=== PATIENT | male | born 1955 | race Caucasian/White ===

== ENCOUNTER 2018-11-06 12:06 | Inpatient (IN) | payer BC ==
[2018-11-06] VITALS (13 sets, daily range): BP systolic 103–168
[~2018-11-06] VITALS: Ht 182.9 cm; Wt 109.4 kg
[2018-11-06] MEDS: NACL 0.9% 2,000 ML IV ONE ×2 (10:00→18:32)
--- NOTE | 2018-11-06 12:07 | NUR ---
Placed in room 01 . Placed on potline monitor, blood pressure machine and pulse oximeter. To gown for exam. Side rails up.
--- NOTE | 2018-11-06 12:07 | NUR ---
1207: Successful intubation after [address] Rush 1207: 1st epi in. 1208: 1 amp bicarb given 1210: pulses palpable, CPR stopped.
--- NOTE | 2018-11-06 12:07 | NUR ---
Patient arrived via ALS ambulance, patient BVM, patient patel in color, cold, and no palpable pulses. MD Rush at bedside for intubation. CPR began by attending fire fighters. RT called to bedside, and crash cart opened.
--- NOTE | 2018-11-06 12:07 | NUR ---
Patient placed on ventilator by RT initial settings: AC 22/ TV500/ PEEP 0/ 100%FiO2. 28 at lip, XR at bedside for placement verification.
--- NOTE | 2018-11-06 12:10 | NUR ---
Per Dr. Rush, ETT at 26cm at lip.
[2018-11-06] MEDS ORDERED: LEVOFLOXACIN 500 MG/D5W 100 ML IV ONE (12:15)
[2018-11-06] MEDS ORDERED: ALBUTEROL SULFATE 0.083% 2.5 MG/3 ML VIAL.NEB INH ONE (12:15)
--- NOTE | 2018-11-06 12:25 | NUR ---
# 16 FR Coyle catheter with use of sterile technique. Immediate return of 20 cc dark yellow clear urine noted. Bedside drainage bag placed below level of bladder. Urine sample collected and sent to lab. Pt tolerated procedure well. Patient unable to toilet self.
[2018-11-06 12:56] LABS: BILIRUBIN,URINE NEGATIVE (NEGATIVE); BLOOD, URINE 1+ (NEGATIVE); CLARITY/URINE CLEAR (CLEAR); COLOR,URINE YELLOW (YELLOW); GLUCOSE,URINE NEGATIVE (NEGATIVE); KETONES,URINE NEGATIVE (NEGATIVE); LEUKOCYTE ESTERASE ,URINE TRACE (NEGATIVE); NITRITE, URINE NEGATIVE (NEGATIVE); PH,URINE 6.5 (5.0-8.0); PROTEIN URINE 1+ (NEGATIVE)
[2018-11-06 12:56] LABS: RED BLOOD CELL COUNT(AUTO) 3.59 MIL/uL (4.2-6.2); WHITE BLOOD COUNT (AUTO) 6.4 K/uL (4.8-10.8)
[2018-11-06 12:57] LABS: HEMATOCRIT 33.6 % (36-54); HEMOGLOBIN 10.6 g/dL (14.0-18.0); LYMPHOCYTES # (AUTO) 1.1 K/uL (1.0-5.5); LYMPHOCYTES % (AUTO) 17.2 % (20.5-51.5); MEAN CORPUSCULAR HEMOGLOBIN 30 pg (27-31); MEAN CORPUSCULAR HGB CONC 32 % (32-36); MEAN CORPUSCULAR VOLUME 93 fL (79.0-98.0); MONOCYTES % (AUTO) 7.1 % (1.7-9.3); NEUTROPHILS # (AUTO) 4.8 K/uL (1.8-7.7); NEUTROPHILS % (AUTO) 74.7 % (40.0-70.0); PLATELET COUNT (AUTO) 216 K/uL (130-430); RED CELL DISTRIBUTION WIDTH 14.5 % (9.0-15.0)
[2018-11-06 12:58] LABS: EOSINOPHILS # (AUTO) 0.1 K/uL (0.0-0.4); MONOCYTES # (AUTO) 0.5 K/uL (0.0-1.0)
--- NOTE | 2018-11-06 13:00 | NUR ---
Blood pressure at 55/36, levophed started at rate of 10mcg/min per Dr. Rush. Bedside monitor changed to q5min BP monitoring.
[2018-11-06] MEDS ORDERED: NOREPINEPHRINE 4 MG/4 ML VIAL IV ONE ×3 (13:02→22:36)
[2018-11-06 13:04] LABS: CALCIUM 8.5 mg/dL (8.4-11.0); CREATININE 0.77 mg/dL (0.55-1.30); POTASSIUM 3.4 mmol/L (3.5-5.1)
--- NOTE | 2018-11-06 13:08 | NUR ---
Dr. Lamar at bedside for evaluation.
[2018-11-06 13:09] LABS: ALBUMIN 2.3 g/dL (3.4-4.8); TOTAL BILIRUBIN 0.3 mg/dL (0.0-1.0)
[2018-11-06 13:17] LABS: INR 1.1 (0.80-1.20); PROTHROMBIN TIME 11.2 SECS (9.5-12.5)
[2018-11-06 13:27] LABS: BACTERIA,URINE MODERATE /HPF (None Seen)
[2018-11-06 13:28] LABS: MUCUS,URINE 1+ /LPF (None Seen); URINE AMORPHOUS URATE 1+ /HPF (None Seen); YEAST,URINE None Seen /HPF (None Seen)
[2018-11-06] MEDS ORDERED: ALBUTEROL SULFATE 0.083% 2.5 MG/3 ML VIAL.NEB INH PRN (13:30)
[2018-11-06] MEDS ORDERED: IPRATROPIUM BROM 0.5 MG/2.5 ML VIAL.NEB (ATROVENT) INH PRN (13:30)
--- NOTE | 2018-11-06 13:52 | NUR ---
Levophed titrated up to 12mcg/min to keep MAP >65. Current blood pressure of 80/46 (59). Will continue to monitor BP q5min.
[2018-11-06] MEDS ORDERED: MULT-1089 PO (13:54)
[2018-11-06] MEDS ORDERED: PROC5TAB12 PO (13:54)
[2018-11-06] MEDS ORDERED: FERR-69 PO (13:54)
[2018-11-06] MEDS ORDERED: DOCU-144 PO (13:54)
[2018-11-06] MEDS ORDERED: TRAM-350 PO (13:54)
[2018-11-06] MEDS ORDERED: SIMV10TA2 PO (13:54)
[2018-11-06] MEDS ORDERED: SENN8.6T19 PO (13:54)
[2018-11-06] MEDS ORDERED: CYAN100010 PO (13:54)
[2018-11-06] MEDS ORDERED: MOM PO (13:54)
[2018-11-06] MEDS ORDERED: LISI10TA5 PO (13:54)
[2018-11-06] MEDS ORDERED: FAMO40TA71 PO (13:54)
[2018-11-06] MEDS ORDERED: BISA-79 PR (13:54)
[2018-11-06] MEDS ORDERED: LACT1CAP89 PO (13:54)
[2018-11-06] MEDS ORDERED: GLUC1VIA4 IM (13:54)
[2018-11-06] MEDS ORDERED: ASCO500T20 PO (13:54)
[2018-11-06] MEDS ORDERED: GUAI-723 PO (13:54)
[2018-11-06] MEDS ORDERED: AMI200 PO (13:54)
[2018-11-06] MEDS ORDERED: LACT10SO6 PO (13:54)
[2018-11-06] MEDS ORDERED: AMLO5TAB4 PO (13:54)
[2018-11-06] MEDS ORDERED: SSREG SUBCUT (13:54)
[2018-11-06] MEDS ORDERED: FLEETMO RC (13:54)
[2018-11-06] MEDS ORDERED: MVI,5VIA6 IV (13:54)
[2018-11-06] MEDS ORDERED: GLUXR500 PO (13:54)
[2018-11-06] MEDS ORDERED: ACET325T53 PO (13:54)
--- NOTE | 2018-11-06 14:14 | NUR ---
Patient will be admitted to care of Dr. Lamar. Admitted to ICU unit. Will go to room ICU5. Belongings list completed. Summary report printed. Report will be given at bedside.
[2018-11-06] MEDS ORDERED: ALBUTEROL SULFATE 0.083% 2.5 MG/3 ML VIAL.NEB INH SCH (15:00)
[2018-11-06] MEDS ORDERED: IPRATROPIUM BROM 0.5 MG/2.5 ML VIAL.NEB (ATROVENT) INH SCH (15:00)
--- NOTE | 2018-11-06 15:00 | NUR ---
Opening Note Patient transferred from ER via gurney. Patient received alert, awake, and cooperative. Patient on vent with settings of AC 22, TV 500, and FiO2 100% breathing evenly and unlabored. Patient connected to phototypesetting equipment monitor with A-fib. Patient has a EFE PICC with double lumen infusing NS @ 100 ml/hr and levophed @ 12 mcg/min. Patient has a beatty catheter in place draining tania colored urine. Skin non-intact. Dressing in place on sacral area. Will monitor VS closely. Safety precautions in place.
[2018-11-06] MEDS ORDERED: HYDROCORTISONE SOD SUCC 100 MG/2 ML VIAL IVP ONE (16:30)
[2018-11-06] MEDS ORDERED: EPINEPHrine JECT 1 MG/10 ML SYR IVP ONE (16:33)
[2018-11-06] MEDS ORDERED: SODIUM BICARBONATE 8.4% JECT 50 MEQ/50 ML SYRINGE IVP ONE (16:33)
--- NOTE | 2018-11-06 17:05 | NUR ---
RT Note: 1702 Decreased rate to 14, PEEP adjusted to 5, and FiO2 decreased to 50% keeping SpO2 > 92% per Dr. Nguyễn and per ABG results. LUIS Saleh made aware. Will continue to titrate FiO2 and monitor pt. Addendum: 11/06/18 at 1709 by Jennifer Blue RT Amended: Links added.
[2018-11-06] MEDS ORDERED: LORazepam 2 MG/ML VIAL IVP PRN (18:45)
[2018-11-06] MEDS ORDERED: MORPHINE 4 MG/ML INJ. SYRINGE IVP PRN (18:45)
--- NOTE | 2018-11-06 19:25 | NUR ---
Endorsement Patient endorsed to professor in family studies RN using SBAR format. Patient VSS @ this time. Patient in no signs of acute distress.
[2018-11-06] MEDS: NACL 0.9% 1,000 ML IV SCH (19:27)
--- NOTE | 2018-11-06 19:45 | NUR ---
PM Assessment Pt in bed asleep. Pt is AAO. A-fib shown on monitor. ETT in place. Vent settings: AC 14, FIO2 100%, TV 500, PEEP 5. No s/s of distress noted. Pt has EFE PICC Line in place. Site is C/D/I. Levophed running @15mcg/min. NS running @ 100ml/hr. Pt has a Coyle catheter in place draining urine to gravity. Bed locked in lowest position, call light in reach, and safety precautions in place. Will continue to monitor. Addendum: 11/06/18 at 2338 by Zheng More RN FIO2 of 50%.
[2018-11-06] MEDS: ALBUTEROL SULFATE 0.083% 2.5 MG/3 ML VIAL.NEB INH SCH (19:49)
[2018-11-06] MEDS: IPRATROPIUM BROM 0.5 MG/2.5 ML VIAL.NEB (ATROVENT) INH SCH (19:50)
[2018-11-06] MEDS ORDERED: IOHEXOL 350 mgI/mL, 150 ML INFUS..BTL IV ONE (19:53)
--- NOTE | 2018-11-06 20:00 | NUR ---
CT Pt being taken down to CT scan accompanied by RN and RT. VSS. Will continue to monitor.
--- NOTE | 2018-11-06 20:35 | NUR ---
Pt back from CT scan. Tolerated well, VSS. Will continue to monitor.
[2018-11-06] MEDS: HYDROCORTISONE SOD SUCC 100 MG/2 ML VIAL IVP SCH (22:39)
[2018-11-06] MEDS: NOREPINEPHRINE BITARTRATE 4 MG in NS 246 ML IV PRN (22:41)
[2018-11-07] VITALS (36 sets, daily range): BP systolic 91–145
[2018-11-07] MEDS: INSULIN REGULAR, HUMAN 100 UNITS/ML, 10 ML VIAL (novoLIN R) SUBCUT PRN ×3 (00:23→17:17)
[2018-11-07] MEDS: ALBUTEROL SULFATE 0.083% 2.5 MG/3 ML VIAL.NEB INH SCH ×4 (01:13→20:14)
[2018-11-07] MEDS: IPRATROPIUM BROM 0.5 MG/2.5 ML VIAL.NEB (ATROVENT) INH SCH ×4 (01:14→20:14)
--- NOTE | 2018-11-07 01:45 | NUR ---
NGT NGT placed orally. Auscultated and flushed for placement. X-ray to be done in the AM. Pt tolerated well.
--- NOTE | 2018-11-07 02:05 | NUR ---
CHG CHG bath given and linens changed. Pt tolerated well. Will continue to monitor.
[2018-11-07] MEDS ORDERED: NOREPINEPHRINE 4 MG/4 ML VIAL IV ONE (04:38)
[2018-11-07] MEDS: NACL 0.9% 1,000 ML IV SCH ×3 (04:41→14:19)
[2018-11-07] MEDS: NOREPINEPHRINE BITARTRATE 4 MG in NS 246 ML IV PRN ×2 (04:43→11:33)
--- NOTE | 2018-11-07 04:50 | NUR ---
RN Round Pt asleep in bed. No s/s of distress noted. VSS. Pt Temp back down after ice packs place on Pt. Will continue to monitor.
[2018-11-07] MEDS: HYDROCORTISONE SOD SUCC 100 MG/2 ML VIAL IVP SCH ×3 (06:04→21:20)
--- NOTE | 2018-11-07 06:23 | NUR ---
Closing Note Pt in bed asleep. SR shown on monitor. Vent settings: AC 14, FIO2@ 50%, TV 500, PEEP 5. Pt has EFE PICC line in place. Site remains C/D/I. Levophed running at 5mcg/min. Pt has NS running @ 100ml/hr. Coyle catheter in place training urine to gravity. Bed locked in lowest position, safety precautions in place, and call light in reach. Will endorse to oncoming nurse.
[2018-11-07 06:32] LABS: CALCIUM 8.3 mg/dL (8.4-11.0); CREATININE 0.65 mg/dL (0.55-1.30); POTASSIUM 3.5 mmol/L (3.5-5.1)
[2018-11-07 06:44] LABS: ALBUMIN 2.2 g/dL (3.4-4.8); TOTAL BILIRUBIN 0.4 mg/dL (0.0-1.0)
[2018-11-07 07:15] LABS: HEMOGLOBIN 10.2 g/dL (14.0-18.0); RED BLOOD CELL COUNT(AUTO) 3.42 MIL/uL (4.2-6.2); WHITE BLOOD COUNT (AUTO) 6.1 K/uL (4.8-10.8)
[2018-11-07 07:16] LABS: HEMATOCRIT 31.2 % (36-54); MEAN CORPUSCULAR HEMOGLOBIN 30 pg (27-31); MEAN CORPUSCULAR HGB CONC 33 % (32-36); MEAN CORPUSCULAR VOLUME 91 fL (79.0-98.0); PLATELET COUNT (AUTO) 221 K/uL (130-430); RED CELL DISTRIBUTION WIDTH 15.1 % (9.0-15.0)
[2018-11-07 07:17] LABS: LYMPHOCYTES # (AUTO) 0.5 K/uL (1.0-5.5); LYMPHOCYTES % (AUTO) 8.3 % (20.5-51.5); MONOCYTES # (AUTO) 0.3 K/uL (0.0-1.0); MONOCYTES % (AUTO) 5.5 % (1.7-9.3); NEUTROPHILS # (AUTO) 5.3 K/uL (1.8-7.7); NEUTROPHILS % (AUTO) 86.2 % (40.0-70.0)
--- NOTE | 2018-11-07 07:25 | NUR ---
Endorsement Report given to Oncoming nurse at bedside via SBAR approach.
--- NOTE | 2018-11-07 07:30 | NUR ---
AM NOTES IN BED, PT RESPONSE TO VERBAL STIMULI. TOLERATING VENT SETTINGS, TV-500, AC-14, PEEP-5 AND FI02-50%. FERRELL DRAINING YELLOW URINE. HAS EFE PICC LINE RUNNING NS AT 100CC/HR. AFEBRILE. SAFETY PRECAUTION OBSERVED. WILL CONTINUE TO MONITOR.
--- NOTE | 2018-11-07 07:35 | NUR ---
RT Note: 0735 Decreased FiO2 to 40% keeping SpO2 above 92%. Will continue to monitor pt. RN made aware. Addendum: 11/07/18 at 0834 by Jennifer Blue RT Amended: Links added.
--- NOTE | 2018-11-07 07:56 | NUR ---
LEVOPHED TITRATE TO 3MCG/MIN AT THIS TIME. WILL MONITOR.
[2018-11-07] MEDS: AMIODARONE HCL 200 MG TABLET PO SCH (08:44)
[2018-11-07] MEDS: PANTOPRAZOLE SODIUM 40 MG/VIAL (PROTONIX) IVP SCH (08:44)
[2018-11-07] MEDS: ASPIRIN 81 MG TAB.CHEW PO SCH (08:44)
--- NOTE | 2018-11-07 08:46 | NUR ---
Consult Cardio. Dr. Chinchilla called (Dr. Agarwal handyperson) Spoke to rafael Dialed [phone] Ordered by Nery Mullins
--- NOTE | 2018-11-07 08:57 | NUR ---
called- Spoke to Dr. Lo covering for Dr. nunez. Per he knows the patient from previous hospital when they did angiogram 2 weeks ago. Per Md he will come and see patient.
--- NOTE | 2018-11-07 08:59 | NUR ---
notes- Pt awake, turned and repositioned, sunctioning and mouth care done.
[2018-11-07] MEDS: LEVOFLOXACIN 500 MG/D5W 100 ML IV SCH (09:11)
--- NOTE | 2018-11-07 09:34 | NUR ---
Nutrition Update Eneraj Scale 13noted. Pt admitted for respiratory failure. Diet: N/A BMI: 30.8 kg/m2 RD to follow per nutrition care standards.
--- NOTE | 2018-11-07 13:04 | NUR ---
Dietitian Recommendations * Consider EN support via OGT if/when medically appropriate (Diabetisource TF formula) LP, RD Please refer to Nutrition Assessment for details.
[2018-11-07 14:59] LABS: BARBITURATE, URINE NEGATIVE (NEG <=200); BENZODIAZEPINE, URINE NEGATIVE (NEG <=150); CANNABINOID, URINE NEGATIVE (NEG <=50); COCAINE, URINE NEGATIVE (NEG <=150); METHAMPHETAMINES SCREEN,URINE NEGATIVE (NEG <=500); OPIATE, URINE NEGATIVE (NEG <=100); PHENCYCLIDINE SCREEN,URINE NEGATIVE (NEG <=25); UR TRICYCLIC ANTIDEPRESSANTS NEGATIVE (NEG <=300); URINE AMPHETAMINE NEGATIVE (NEG <=500); URINE METHADONE NEGATIVE (NEG <=200); URINE OXYCODONE SCREEN NEGATIVE (NEG <=100); URINE PROPOXYPHENE SCREEN NEGATIVE (NEG <=300)
--- NOTE | 2018-11-07 15:00 | NUR ---
notes- awake, family at bedside. Dr. Nguyễn seen patient and spoke to family at bedside.
--- NOTE | 2018-11-07 15:25 | NUR ---
RT Note: 1523 Vent settings changed to SIMV 8, PS 10, PEEP 5, and 35% FiO2 per Dr. Nguyễn. Pt understands and is cooperating well. Pt is tolerating change well. Will continue to monitor pt. RN aware of changes. Addendum: 11/07/18 at 1618 by Jennifer Blue RT Amended: Links added.
[2018-11-07] MEDS ORDERED: ENOXAPARIN SODIUM 40 MG/0.4 ML SYRINGE SUBCUT ONE (15:30)
--- NOTE | 2018-11-07 16:39 | NUR ---
notes- had soft bowel movement, cleaned and repositioned new dressing applied in the sacrum for protection. Tolerating vent settings at this time. No acute distress noted. family at bedside. will continue to monitor.
--- NOTE | 2018-11-07 19:45 | NUR ---
PM Assessment Pt in bed. AAO. SR shown on monitor. Vent settings: SIMV 8,TV 500, PEEP 5, PS 10, FIO2 35%. No s/s of distress noted. Pt has EFE PICC line in place. Site C/D/I. No s/s of infiltration noted. NS running @ 100 ml/hr. Levophed running @ 3mcg/min. Pt has OGT in place, clamped. Coyle catheter in place draining urine to gravity. Bed locked in lowest position, safety precautions in place, and call light in reach. Will continue to monitor.
[2018-11-08] VITALS (32 sets, daily range): BP systolic 91–149
--- NOTE | 2018-11-08 00:20 | NUR ---
CHG CHG bath given and linens changed. Pt tolerated well. Will continue to monitor.
[2018-11-08] MEDS: NACL 0.9% 1,000 ML IV SCH ×2 (00:58→11:02)
--- NOTE | 2018-11-08 02:05 | NUR ---
RN Round Pt in bed asleep. No s/s of distress noted. Will continue to monitor.
[2018-11-08] MEDS: IPRATROPIUM BROM 0.5 MG/2.5 ML VIAL.NEB (ATROVENT) INH SCH ×4 (02:08→19:41)
[2018-11-08] MEDS: ALBUTEROL SULFATE 0.083% 2.5 MG/3 ML VIAL.NEB INH SCH ×4 (02:08→19:41)
--- NOTE | 2018-11-08 04:40 | NUR ---
RN Round Pt in bed asleep. No s/s of distress noted. VSS. Will continue to monitor.
[2018-11-08] MEDS: HYDROCORTISONE SOD SUCC 100 MG/2 ML VIAL IVP SCH ×2 (05:33→20:46)
--- NOTE | 2018-11-08 06:40 | NUR ---
Closing Note Pt in bed asleep. AAO. SR shown on the monitor. Vent settings: SIMV 8, TV 500, FIO2 35%, PEEP 5, PS 10. No s/s of distress noted. EFE PICC Line remains C/D/I. No s/s of infiltration noted. Coyle catheter in place draining urine to gravity. Pt has OGT in place, Clamped. No s/o of pain at this time. Bed locked in lowest position, safety precautions in place, and call light in reach. Will endorse to oncoming RN.
[2018-11-08 07:21] LABS: CALCIUM 8.1 mg/dL (8.4-11.0); CREATININE 0.58 mg/dL (0.55-1.30)
--- NOTE | 2018-11-08 07:25 | NUR ---
Endorsement Report given to oncoming RN at bedside via SBAR approach.
--- NOTE | 2018-11-08 07:30 | NUR ---
Opening Note Patient awake and alert in bed. Patient on athletic monitor with NSR. Patient breathing evenly and unlabored and is on mechanical ventilator with settings of SIMV 8, tidal volume 500, FiO2 35%, PEEP 5, and PS 10. Patient has an OGT patent, flushing well, and clamped. Patient has a beatty catheter in place draining yellow urine. Safety precautions in place, call light in reach.
[2018-11-08 07:33] LABS: TOTAL BILIRUBIN 0.4 mg/dL (0.0-1.0)
[2018-11-08 07:53] LABS: HEMATOCRIT 26.6 % (36-54); HEMOGLOBIN 8.7 g/dL (14.0-18.0); MEAN CORPUSCULAR HEMOGLOBIN 30 pg (27-31); MEAN CORPUSCULAR HGB CONC 33 % (32-36); MEAN CORPUSCULAR VOLUME 91 fL (79.0-98.0); RED BLOOD CELL COUNT(AUTO) 2.93 MIL/uL (4.2-6.2); WHITE BLOOD COUNT (AUTO) 3.9 K/uL (4.8-10.8)
[2018-11-08 07:54] LABS: BASOPHILS % (AUTO) 0.1 % (0.0-2.0); LYMPHOCYTES # (AUTO) 0.6 K/uL (1.0-5.5); LYMPHOCYTES % (AUTO) 15.5 % (20.5-51.5); MONOCYTES # (AUTO) 0.3 K/uL (0.0-1.0); MONOCYTES % (AUTO) 8.1 % (1.7-9.3); NEUTROPHILS % (AUTO) 76.3 % (40.0-70.0); PLATELET COUNT (AUTO) 152 K/uL (130-430)
[2018-11-08] MEDS: PANTOPRAZOLE SODIUM 40 MG/VIAL (PROTONIX) IVP SCH (08:55)
[2018-11-08] MEDS: ASPIRIN 81 MG TAB.CHEW PO SCH (08:56)
[2018-11-08] MEDS: AMIODARONE HCL 200 MG TABLET PO SCH (08:56)
[2018-11-08] MEDS: LEVOFLOXACIN 500 MG/D5W 100 ML IV SCH (08:56)
[2018-11-08] MEDS: ENOXAPARIN SODIUM 40 MG/0.4 ML SYRINGE SUBCUT SCH (08:57)
[2018-11-08] MEDS ORDERED: KCL 40 mEq in 100 mL (PREMIX) 100 ML IV ONE (09:00)
[2018-11-08 09:12] LABS: TOTAL IRON BIND. CAPACITY 181 ug/dL (250-450)
--- NOTE | 2018-11-08 12:00 | NUR ---
RN Rounds Patient awake and alert. No signs of acute distress @ this time. VSS.
[2018-11-08] MEDS ORDERED: FUROSEMIDE 20 MG/2 ML VIAL IVP ONE (13:15)
[2018-11-08] MEDS ORDERED: POTASSIUM CHLORIDE 20 MEQ/PKT PACKET PO ONE (13:15)
--- NOTE | 2018-11-08 13:40 | NUR ---
MD Rounds Dr. Nguyễn @ bedside. New orders received and will be carried out.
--- NOTE | 2018-11-08 13:50 | NUR ---
RT Note: 1348 Pt found on CPAP mode with PS 10 and PEEP 5. Will draw ABG an hour from the time of vent change order. Will continue to monitor pt. Pt is tolerating well. No distress noted. Addendum: 11/08/18 at 1455 by Jennifer Blue RT Amended: Links added.
[2018-11-08] MEDS: POTASSIUM CHLORIDE 10 MEQ in 0.45% NACL 1,000 ML IV SCH (15:34)
--- NOTE | 2018-11-08 15:37 | NUR ---
RN update Patient extubated @ this time. Patient on 2L O2 via nasal cannula. Patient tolerated procedure well.
--- NOTE | 2018-11-08 15:40 | NUR ---
RT Note: 1537 Patient extubated and placed on 2LPM nasal cannula. Pt tolerated procedure. V/S are within normal limits. Will continue to monitor pt. RN at bedside. Addendum: 11/08/18 at 1632 by Jennifer Blue RT Amended: Links added.
--- NOTE | 2018-11-08 16:00 | NUR ---
RN Rounds Patient awake and alert. No signs of acute distress @ this time. No complaints of pain. Safety precautions in place.
--- NOTE | 2018-11-08 16:10 | NUR ---
PICC line dressing change PICC line dressing changed. Patient tolerated procedure well.
--- NOTE | 2018-11-08 19:30 | NUR ---
Endorsement Patient endorsed to mica machine operator nurse. VSS. No signs of acute distress noted.
--- NOTE | 2018-11-08 20:00 | NUR ---
pt.assessed.pt.presents hx;s/p code blue.v/s assessed;w/in normal limits.pt.capable to conveyed needs;verbalize;voice low tone;whisper but appropriate in response.pt.presents picc line;rt.bicept;intact patent;iv fluids infusing.i was apprised per day shf;nsg, picc line dsg was changed;11/08/18.pt.presents no c/o pain,nausea.pt.assessed for cleanliness.pt.repositioned.o2- sat%w/in normal limits;respiratory status stable:breathing pattern/character unlabored.call light/telephone placed w/in the reach of the pt.
--- NOTE | 2018-11-08 21:00 | NUR ---
2100p medication adminitered;solumedrol;via pic herron.i have provided the indication for the medication to the pt.no c/o pain,nausea.no requests@this hour.call light/telephone w/in the reach of the pt.
--- NOTE | 2018-11-08 22:00 | NUR ---
pt.assessed.v/s assessed:w/in normal limits.no c/o pain,nausea.i have assessed the picc line;intact;patent;iv fluids infusing. i have assessed the beatty catheter;intact;patent;urine content presents.pt,.assessed for cleanliness.pt.repositioned.02-sat% w/in normal limits.call light/telephone w.in reach of the pt.
[2018-11-09] VITALS (21 sets, daily range): BP systolic 121–160
--- NOTE | 2018-11-09 | NUR ---
pt.assessed.v/s assessed;values w/in normal limits.no c/o pain.i have assessed the blood glucose;value;130mg/dl. i have assessed the pic herron;intact;patent;iv fluids infusing.pt.assessed for cleanliness.pt.repositioned.general status stable.respiratory status stable.call light/telephone w/in the reach of the pt. Addendum: 11/09/18 at 0300 by Levi Gardner RN bi-pap apparatus applied t pt.settings assessed;i/e;29/12,r/r;,fi-25:=28%. Addendum: 11/09/18 at 0439 by Levi Gardner RN bi-pap apparatus applied to the pt.settings;i/e;29/12,r/r;16,fio-2%=28%
[2018-11-09] MEDS: ALBUTEROL SULFATE 0.083% 2.5 MG/3 ML VIAL.NEB INH SCH ×4 (00:59→19:49)
[2018-11-09] MEDS: IPRATROPIUM BROM 0.5 MG/2.5 ML VIAL.NEB (ATROVENT) INH SCH ×4 (00:59→19:49)
--- NOTE | 2018-11-09 02:00 | NUR ---
pt.assessed.i have assessed the picc lne;intact;patent;iv fluids infusing.i have assessed the beatty catheter;intact;patent;urine content present.pt.assessed for cleanliness.pt,.repositioned.general status stable.respiratory status stable;bi-pap assessed pt.tolerating the settings.call light/telephone w/in the reach of the pt.
--- NOTE | 2018-11-09 04:00 | NUR ---
pt.assessed.v/s assessed;values w/in normal limits.i have assessed the picc line;intact.patent;iv fluids infusing.i have assessed the beatty catheter;intact;patent;urine content present.02-sat%w/in normal limits.i have assessed the bi-pap;pt.tolerating the settings. pt.assessed for cleanliness.pt.repositioned.general status stable.respiratory status stable.call light/telephone placed w/in the reach of the pt.
--- NOTE | 2018-11-09 05:00 | NUR ---
i have weighed the pt.2/t hx;chf.
[2018-11-09] MEDS: POTASSIUM CHLORIDE 10 MEQ in 0.45% NACL 1,000 ML IV SCH ×2 (05:11→17:25)
--- NOTE | 2018-11-09 06:55 | NUR ---
pt.assessed.pt.assessed for cleanliness.i have assessed the picc line;intact;patent.iv fluids infusing.i have assessed the blood glucose;127mg/dl.i have assessed the bi-pap;pt.tolerating the settings.pt.repositioned.general status stable.respiratory status stable.call light./telephone pled w/in the reach of the pt.
--- NOTE | 2018-11-09 07:15 | NUR ---
OPENING NOTE: Received SBAR report and plan of care from night RN
[2018-11-09 07:24] LABS: ALBUMIN 2.2 g/dL (3.4-4.8); CALCIUM 8.3 mg/dL (8.4-11.0); CREATININE 0.48 mg/dL (0.55-1.30); POTASSIUM 3.3 mmol/L (3.5-5.1); TOTAL BILIRUBIN 0.5 mg/dL (0.0-1.0)
[2018-11-09] MEDS ORDERED: KCL 40 mEq in 100 mL (PREMIX) 100 ML IV ONE (07:45)
[2018-11-09] MEDS: LEVOFLOXACIN 500 MG/D5W 100 ML IV SCH (08:25)
[2018-11-09] MEDS: PANTOPRAZOLE SODIUM 40 MG/VIAL (PROTONIX) IVP SCH (08:25)
[2018-11-09] MEDS: AMIODARONE HCL 200 MG TABLET PO SCH (08:26)
[2018-11-09] MEDS: ASPIRIN 81 MG TAB.CHEW PO SCH (08:26)
[2018-11-09] MEDS: HYDROCORTISONE SOD SUCC 100 MG/2 ML VIAL IVP SCH ×2 (08:26→21:11)
[2018-11-09] MEDS: ENOXAPARIN SODIUM 40 MG/0.4 ML SYRINGE SUBCUT SCH (08:27)
[2018-11-09 08:43] LABS: HEMATOCRIT 28.4 % (36-54); HEMOGLOBIN 9.3 g/dL (14.0-18.0); RED BLOOD CELL COUNT(AUTO) 3.11 MIL/uL (4.2-6.2); WHITE BLOOD COUNT (AUTO) 3.3 K/uL (4.8-10.8)
[2018-11-09 08:44] LABS: BASOPHILS % (AUTO) 0.1 % (0.0-2.0); LYMPHOCYTES # (AUTO) 0.7 K/uL (1.0-5.5); LYMPHOCYTES % (AUTO) 20.5 % (20.5-51.5); MEAN CORPUSCULAR HEMOGLOBIN 30 pg (27-31); MEAN CORPUSCULAR HGB CONC 33 % (32-36); MEAN CORPUSCULAR VOLUME 91 fL (79.0-98.0); MONOCYTES # (AUTO) 0.3 K/uL (0.0-1.0); MONOCYTES % (AUTO) 8.1 % (1.7-9.3); NEUTROPHILS # (AUTO) 2.3 K/uL (1.8-7.7); PLATELET COUNT (AUTO) 141 K/uL (130-430); RED CELL DISTRIBUTION WIDTH 15.6 % (9.0-15.0)
--- NOTE | 2018-11-09 10:18 | NUR ---
Cheryle Lombardo. Called eber left a voice message Dialed [phone]
[2018-11-09 13:49] LABS: NEUTROPHILS % (AUTO) 71.3 % (40.0-70.0)
--- NOTE | 2018-11-09 15:00 | NUR ---
CHG: Gave CHG bath, changed gown and linens, patient tolerated well with minimal discomfort.
--- NOTE | 2018-11-09 15:30 | NUR ---
WOUND CARE: Changed dressings and provided wound care per wound care guidelines, patient tolerated well with minimal discomfort.
--- NOTE | 2018-11-09 16:30 | NUR ---
TRANSFER TO [facility]: Transferred patient to [facility] on her ICU bed using continuous portable monitoring, placed in location 114A, patient tolerated well with minimal discomfort, gave bedside SBAR report and endorsed plan of care to [facility] RN.
--- NOTE | 2018-11-09 16:35 | NUR ---
S.T. SWALLOW EVAL COMPLETED. PT PRESENTS W/ ML OROPHARYNGEAL DYSPHAGIA W/ PROLONGED MASTICATION AND THROAT CLEARING ON CONTINUOUS SIPS OF THIN LIQUIDS. OTHERWISE, NO S/S OF ASPIRATION. REC: [facility] SOFT CHOPPED DIET. THIN LIQUIDS OK. ONE SIP AT A TIME. PT VERBALIZED UNDERSTANDING OF RESULTS AND REC. NURSES GLENROY AND CALDERON NOTIFIED. G8996 CJ G8997 CJ G8998 NOMS LEVEL 5
--- NOTE | 2018-11-09 16:55 | NUR ---
INITIAL NOTE RECEIVED PT FROM ICU, NO S/S OF DISTRESS OR SOB NOTED, PT IN STABLE CONDITION, PT AAOX4, VERBAL. PT HAS A PICC LINE ON RIGHT UPPER, DRESSING CLEAN AND DRY, NON OCCLUDED, BOTH PORTS FLUSH AND HAVE BLOOD RETURN. PT ON OXYGEN 2 LITERS VIA NASAL CANNULA SATURATION OF 95%. PT EDUCATED TO LET NURSE KNOW WHEN HE FIRST VOIDS, PT VERBALIZED UNDERSTANDING, BLADDER NON DISTENDED, NO BLEEDING NOTED. ELEVATED LEFT UPPER ARM DUE TO SWELLING. BED AT LOWEST POSITION, CALL LIGHT WITHIN REACH, WILL CONTINUE TO MONITOR PT FOR ANY CHANGES, FALL AND SAFETY PRECAUTIONS IN PLACE.
[2018-11-09] MEDS: INSULIN REGULAR, HUMAN 100 UNITS/ML, 10 ML VIAL (novoLIN R) SUBCUT PRN (17:21)
--- NOTE | 2018-11-09 18:29 | NUR ---
CLOSING NOTE PT IN BED, NO S/S OF DISTRESS OR SOB NOTED, PT IN STABLE CONDITION, PT AAOX4, VERBAL. PT HAS A PICC LINE ON RIGHT UPPER, DRESSING CLEAN AND DRY, NON OCCLUDED, BOTH PORTS FLUSH AND HAVE BLOOD RETURN. PT ON OXYGEN 2 LITERS VIA NASAL CANNULA SATURATION OF 95%. PT STILL HAS NOT VOIDED, ELEVATED LEFT UPPER ARM DUE TO SWELLING. BED AT LOWEST POSITION, CALL LIGHT WITHIN REACH, WILL ENDORSE CARE OF PT TO INCOMING NURSE, FALL AND SAFETY PRECAUTIONS IN PLACE.
--- NOTE | 2018-11-09 19:15 | NUR ---
OPENING NOTES Bedside report received from dayshift nurse. Patient received in bed, AOx4, toe nails getting trimmed by his [id number]. No s/s of acute distress noted. Breathing even and unlabored. HOB raised, nasal canula attached, on 2L of oxygen. Skin warm and dry to touch, no s/s of hypoglycemia. IVF infusing well, PICC site shows no signs of infiltration or infection. Call light with patient, instructed to call for any assistance, patient verbalized understanding. Bed alarm on. Bed is locked and at lowest position. Will continue to monitor.
--- NOTE | 2018-11-09 21:00 | NUR ---
ROUNDS Patient in bed watching TV. No signs of discomfort noted. Chest rise and fall even bilaterally. Nasal canula attached properly, on 2L of oxygen. Call light with patient. Bed alarm on. Will continue to monitor.
--- NOTE | 2018-11-09 23:00 | NUR ---
ACCUCHECK ACCUCHECK done at this time. BS at 139, no insulin coverage needed per sliding scale. Skin warm and dry to touch. No signs of hypoglycemia noted. Will continue to monitor.
[2018-11-10 00:14] VITALS: BP_SYST 150
[2018-11-10] MEDS: ALBUTEROL SULFATE 0.083% 2.5 MG/3 ML VIAL.NEB INH SCH ×4 (00:53→20:55)
[2018-11-10] MEDS: IPRATROPIUM BROM 0.5 MG/2.5 ML VIAL.NEB (ATROVENT) INH SCH ×4 (00:53→20:55)
--- NOTE | 2018-11-10 01:00 | NUR ---
ROUNDS Patient in bed sleeping at this time. BiPAP machine attached. No s/s of acute distress noted. Call light with patient. Bed alarm on. Will continue to monitor.
--- NOTE | 2018-11-10 03:00 | NUR ---
ROUNDS Patient in bed sleeping at this time. No s/s of acute distress noted. Breathing even and unlabored. Call light with patient. Bed alarm on. Will continue to monitor.
--- NOTE | 2018-11-10 05:00 | NUR ---
ROUNDS Patient in bed sleeping at this time. No signs of discomfort noted. Chest rise and fall even bilaterally. IVF infusing well. BiPAP attached. Call light with patient. Bed alarm on. Will continue to monitor.
[2018-11-10] MEDS: INSULIN REGULAR, HUMAN 100 UNITS/ML, 10 ML VIAL (novoLIN R) SUBCUT PRN (05:17)
--- NOTE | 2018-11-10 06:59 | NUR ---
CLOSING NOTES Patient in bed sleeping at this time. No s/s of acute distress noted. Breathing even and unlabored. IVF infusing well. SCDs attached. All needs met throughout shift. Fall and safety precautions maintained throughout shift. Will continue to monitor until patient care is endorsed to oncoming dayshift nurse.
[2018-11-10 07:22] LABS: ALBUMIN 2.1 g/dL (3.4-4.8); CALCIUM 8.6 mg/dL (8.4-11.0); CREATININE 0.48 mg/dL (0.55-1.30); POTASSIUM 3.2 mmol/L (3.5-5.1); TOTAL BILIRUBIN 0.6 mg/dL (0.0-1.0)
[2018-11-10] MEDS ORDERED: POTASSIUM CHLORIDE 20 MEQ/PKT PACKET PO ONE (08:00)
--- NOTE | 2018-11-10 08:00 | NUR ---
initial notes rec patient awake, alert with ivf infusing on the r upper arm picc line. no infiltration noted. bed to the lowest position and side rails up and locked. call light within reached and knows when to call for assistance. no sob noted.
--- NOTE | 2018-11-10 08:37 | NUR ---
CONSULT ENT VOCAL CORD DYSFUNCTION DR GARCIA [phone] S/W [facility]
[2018-11-10] MEDS: PANTOPRAZOLE SODIUM 40 MG/VIAL (PROTONIX) IVP SCH (08:42)
[2018-11-10] MEDS: HYDROCORTISONE SOD SUCC 100 MG/2 ML VIAL IVP SCH (08:42)
[2018-11-10] MEDS: AMIODARONE HCL 200 MG TABLET PO SCH (08:43)
[2018-11-10] MEDS: ASPIRIN 81 MG TAB.CHEW PO SCH (08:43)
[2018-11-10] MEDS: ENOXAPARIN SODIUM 40 MG/0.4 ML SYRINGE SUBCUT SCH (08:44)
[2018-11-10 08:57] LABS: EOSINOPHILS % (AUTO) 0.2 % (0.0-4.0); HEMATOCRIT 29.7 % (36-54); HEMOGLOBIN 9.7 g/dL (14.0-18.0); MEAN CORPUSCULAR HEMOGLOBIN 30 pg (27-31); MEAN CORPUSCULAR HGB CONC 33 % (32-36); MEAN CORPUSCULAR VOLUME 91 fL (79.0-98.0); MONOCYTES % (AUTO) 6.8 % (1.7-9.3); NEUTROPHILS % (AUTO) 73.9 % (40.0-70.0); PLATELET COUNT (AUTO) 164 K/uL (130-430); RED BLOOD CELL COUNT(AUTO) 3.26 MIL/uL (4.2-6.2)
[2018-11-10 08:58] LABS: BASOPHILS % (AUTO) 0.1 % (0.0-2.0); LYMPHOCYTES # (AUTO) 0.6 K/uL (1.0-5.5); MONOCYTES # (AUTO) 0.2 K/uL (0.0-1.0); NEUTROPHILS # (AUTO) 2.2 K/uL (1.8-7.7)
[2018-11-10] MEDS: LEVOFLOXACIN 500 MG/D5W 100 ML IV SCH (09:06)
--- NOTE | 2018-11-10 09:15 | NUR ---
CONSULT GI POSSIBLE LIVER CIRRHOSIS DR WEBB [phone] S/W [facility]
--- NOTE | 2018-11-10 09:27 | NUR ---
notes seen by dr jeff valerio and with orders. will continue to monitor patient.
--- NOTE | 2018-11-10 09:46 | NUR ---
F/U ENT CONSULT MADI[facility] FROM DR GARCIA'S OFFICE CALLED BACK DR GARCIA DOES NOT ACCEPT PATIENTS INSURANCE
--- NOTE | 2018-11-10 10:00 | NUR ---
notes seen by dr fajardo.
--- NOTE | 2018-11-10 10:28 | NUR ---
CONSULT ENT VOCAL CORD DYSFUNCTION DR JUDITH PETTY [phone] S/W [facility] OFFICE
[2018-11-10] MEDS ORDERED: FUROSEMIDE 20 MG/2 ML VIAL IVP ONE (11:30)
[2018-11-10 12:32] VITALS: BP_SYST 137
--- NOTE | 2018-11-10 12:46 | NUR ---
rounds npo maintained for ultrasound of the abdomen later. no sob noted. no hypo hyperglycemic reaction noted.
--- NOTE | 2018-11-10 14:28 | NUR ---
S.T. VFSS COMPLETED. PT PRESENTS W/ PT PRESENTS W/ MOD-SEV OROPHARYNGEAL DYSPHAGIA CHARACTERIZED BY DELAYED INITIATION AND TRANSFER OF BOLUS, PROLONGED MASTICATION, DELAYED SWALLOW, MOD-SEV VALLECULAR RETENTION, ML RETENTION AT THE PYRIFORM SINUS, INFREQUENT PENETRATION WITH EJECTION, AND ASPIRATION X 1 ON HONEY THICK LIQUIDS. NO FURTHER ASPIRATION WITH USE OF SMALL SIPS AND CHIN TUCK. OTHER COMPENSATORY STRATEGIES (EG. EFFORTFUL SWALLOW, FLORES MANEUVER) DO NOT IMPROVE SWALLOW FUNCTION. REC: MECH SOFT FINELY CHOPPED DIET. THIN LIQUIDS. SWALLOW TX. NURSE ESTELITA NOTIFIED. RESULTS DISCUSSED W/ DR. HUTCHINSON. G8996 CL LEVEL 3 G8997 CK LEVEL 4 Addendum: 11/10/18 at 1447 by [facility] SWALLOW TX APPROVED BY DR. HUTCHINSON. S: PT SEEN FOR SWALLOW TX, ALERT AND COOPERATIVE. (30 MINS) O: IMPROVE SWALLOW SAFETY AND FUNCTION. A: PT INSTRUCTED ON SAFE SWALLOW STRATEGIES INCLUDING BOLUS AMOUNT REGULATION, CHIN TUCK, MULTIPLE SWALLOWS. HE VERBALIZED UNDERSTANDING. SPOKE W/ [id number] VIA PHONE. DETAILED EXPLANATION GIVEN RE: VFSS RESULTS, RECOMMENDATIONS, AND SAFE SWALLOW GUIDELINES. SHE VERBALIZED UNDERSTANDING. P: CONTINUE TX.
--- NOTE | 2018-11-10 14:48 | NUR ---
CONSULT NEUROLOGY SWALLOWING DIFFICULTY, POSSIBLE NEURO CAUSE DR EDWARD [phone] S/W [facility] OFFICE
[2018-11-10] MEDS: POTASSIUM CHLORIDE 10 MEQ in 0.45% NACL 1,000 ML IV SCH (15:58)
[2018-11-10 16:41] VITALS: BP_SYST 132
--- NOTE | 2018-11-10 17:32 | NUR ---
rounds spoke with the office of dr adler and stated that pt will go to there office once d/c. dr jeff valerio was notified about it. pt's sister lavell called and notified re seeing dr adler's office once discharged. abdominal ultrasound being done at bedside at this time.
--- NOTE | 2018-11-10 19:30 | NUR ---
OPENING NOTES Bedside report received from dayshift nurse. Patient received in bed, HOB raised, no s/s of acute distress. Breathing even and unlabored. Nasal canula attached properly, on 2L of oxygen. SCDs attached and operating, heels elevated. IVF infusing well, IV site patent, no signs of infiltration or infection noted. Call light with patient. Bed alarm on. Will continue to monitor.
[2018-11-10 20:00] VITALS: BP_SYST 149
--- NOTE | 2018-11-10 22:00 | NUR ---
TRANSFER OF CARE Report given to LUIS Sanchez. Patient in bed at this time, watching TV. No s/s of acute distress noted. Breathing even and unlabored. HOB raised, nasal canula attached properly, on 2L of oxygen. IVF infusing well. All needs met. Call light with patient. Bed alarm on. Will continue to monitor.
--- NOTE | 2018-11-10 22:05 | NUR ---
OPENING NOTE RECEIVED ENDORSEMENT REPORT FROM NURSE NOELLE AT BEDSIDE. PT RESTING IN BED COMFORTABLY. PT IS AOX4. NO SOB NOTED. NO DISTRESS NOTED. NO S/S OF PAIN NOTED. PT DENIES PAIN AT THIS TIME. PT ON O2 2L VIA NC. PT TOLERATING WELL. IV CLEAN DRY AND INTACT. SKIN CLEAN DRY AND INTACT. BLANCHABLE REDNESS NOTED TO SACRUM. DRESSING CLEAN DRY AND INTACT. ABD INTERDRY DRESSING CLEAN DRY AND INTACT. PT ORIENTED TO HOSPITAL ROOM. PT INSTRUCTED HOW TO USE CALL LIGHT AND ROOM PHONE. PT VERBALIZED UNDERSTANDING. SAFETY MEASURES IN PLACE. CALL LIGHT/ROOM PHONE WITHIN REACH, BED WHEELS LOCKED, BED IN LOWEST POSITION, BED RAILS UP X 2, BED ALARM ON. NO OTHER NEEDS AT THIS TIME. WILL CONTINUE TO MONITOR PT AND CONTINUE POC.
[2018-11-10 23:29] VITALS: BP_SYST 148
--- NOTE | 2018-11-11 00:20 | NUR ---
RN ROUNDS PT RESTING IN BED COMFORTABLY. NO SOB NOTED. NO DISTRESS NOTED. PT DENIES PAIN. VITAL SIGNS WNL. NO NEEDS AT THIS TIME. SAFETY MEASURES IN PLACE. NO NEEDS AT THIS TIME. WILL CONTINUE TO MONITOR PT AND CONTINUE POC.
[2018-11-11] MEDS: ALBUTEROL SULFATE 0.083% 2.5 MG/3 ML VIAL.NEB INH SCH ×4 (00:28→19:49)
[2018-11-11] MEDS: IPRATROPIUM BROM 0.5 MG/2.5 ML VIAL.NEB (ATROVENT) INH SCH ×4 (00:29→19:50)
--- NOTE | 2018-11-11 01:00 | NUR ---
BS 110, NO INSULIN COVERAGE NEEDED AT THIS TIME.
--- NOTE | 2018-11-11 03:12 | NUR ---
RN ROUNDS PT RESTING IN BED COMFORTABLY IN BED WITH EYES CLOSED. NO SOB NOTED. NO DISTRESS NOTED. NO S/S OF PAIN NOTED. NO NEEDS AT THIS TIME. SAFETY MEASURES IN PLACE. WILL CONTINUE TO MONITOR PT AND CONTINUE POC.
--- NOTE | 2018-11-11 05:13 | NUR ---
RN ROUNDS PT RESTING IN BED COMFORTABLY IN BED EYES CLOSED. NO SOB NOTED. NO DISTRESS NOTED. NO NEEDS AT THIS TIME. SAFETY MEASURES IN PLACE. WILL CONTINUE TO MONITOR PT AND CONTINUE POC.
--- NOTE | 2018-11-11 06:34 | NUR ---
BS 106, NO INSULIN COVERAGE NEEDED PER SLIDING SCALE PROTOCOL
--- NOTE | 2018-11-11 06:37 | NUR ---
PT'S SISTER IN LAW CALLED TO CHECK FOR UPDATE
[2018-11-11 07:30] LABS: CALCIUM 8.5 mg/dL (8.4-11.0); CREATININE 0.58 mg/dL (0.55-1.30); POTASSIUM 3.1 mmol/L (3.5-5.1)
--- NOTE | 2018-11-11 07:38 | NUR ---
OPENING NOTE Patient resting in the bed comfortable. No acute distress. On O2 2L/min via NC. AAO x 4. Denied of pain. Skin warm and dry to touch. PICC line intact to EFE, no redness, no swelling, covered with clean and dry transparent dressing. Safety measure maintained. Bed locked in low position, side rails up, bed alarm on. Call light within reached. Will continue to monitor.
--- NOTE | 2018-11-11 07:41 | NUR ---
CLOSING NOTE PT RESTING IN BED COMFORTABLY. PT IS AOX4. NO SOB NOTED. NO DISTRESS NOTED. PT DENIES PAIN THROUGHOUT SHIFT. IVF INFUSING AT ORDERED RATE. ALL NEEDS MET THROUGHOUT SHIFT. ALL SCHEDULED MEDICATIONS ADMINISTERED ORDERED. NO OTHER NEEDS AT THIS TIME. SAFETY MEASURES IN PLACE. WILL ENDORSE PT CARE TO DAY SHIFT NURSE AT BEDSIDE.
[2018-11-11] MEDS ORDERED: KCL 40 mEq in 100 mL (PREMIX) 100 ML IV ONE (07:45)
[2018-11-11 07:47] LABS: ALBUMIN 2.3 g/dL (3.4-4.8); TOTAL BILIRUBIN 0.4 mg/dL (0.0-1.0)
[2018-11-11 07:50] VITALS: BP_SYST 141
--- NOTE | 2018-11-11 07:55 | NUR ---
SEEN AND EXAMINED BY GEMA SLATER WITH ORDER.
[2018-11-11] MEDS ORDERED: IOHEXOL 100 ML IV ONE (08:44)
[2018-11-11 08:45] LABS: WHITE BLOOD COUNT (AUTO) 3.4 K/uL (4.8-10.8)
[2018-11-11 08:46] LABS: HEMOGLOBIN 10.4 g/dL (14.0-18.0); MEAN CORPUSCULAR HEMOGLOBIN 30 pg (27-31); MEAN CORPUSCULAR HGB CONC 32 % (32-36); MEAN CORPUSCULAR VOLUME 92 fL (79.0-98.0); NEUTROPHILS % (AUTO) 63.9 % (40.0-70.0); PLATELET COUNT (AUTO) 189 K/uL (130-430); RED CELL DISTRIBUTION WIDTH 15.1 % (9.0-15.0)
[2018-11-11 08:47] LABS: BASOPHILS % (AUTO) 0.2 % (0.0-2.0); EOSINOPHILS # (AUTO) 0.1 K/uL (0.0-0.4); LYMPHOCYTES # (AUTO) 0.9 K/uL (1.0-5.5); MONOCYTES # (AUTO) 0.3 K/uL (0.0-1.0); MONOCYTES % (AUTO) 8.9 % (1.7-9.3); NEUTROPHILS # (AUTO) 2.2 K/uL (1.8-7.7)
--- NOTE | 2018-11-11 08:50 | NUR ---
LEFT UNIT FOR CT OF NECK VIA BED WITH O2 IN STABLE CONDITION.
--- NOTE | 2018-11-11 09:23 | NUR ---
BACK TO UNIT FOR CT OF NECK VIA BED WITH O2 IN STABLE CONDITION.
[2018-11-11 09:28] LABS: HEPATITIS A AB, IgM Negative (Negative); HEPATITIS B CORE AB, IgM Negative (Negative); HEPATITIS B SURFACE AG Negative (Negative)
--- NOTE | 2018-11-11 09:31 | NUR ---
VINCE RIVERO VISITED Dr. Nguyễn examined patient and explained the result of ST swallow eval to patient's son and answered questions at bedside.
[2018-11-11] MEDS: PANTOPRAZOLE SODIUM 40 MG/VIAL (PROTONIX) IVP SCH (09:48)
[2018-11-11] MEDS: ENOXAPARIN SODIUM 40 MG/0.4 ML SYRINGE SUBCUT SCH (09:49)
[2018-11-11] MEDS: ASPIRIN 81 MG TAB.CHEW PO SCH (09:49)
[2018-11-11] MEDS: AMIODARONE HCL 200 MG TABLET PO SCH (09:51)
[2018-11-11] MEDS: LEVOFLOXACIN 500 MG/D5W 100 ML IV SCH (09:51)
--- NOTE | 2018-11-11 10:10 | NUR ---
SEEN AND EXAMINED BY JEFFREY BANG WITH ORDER.
[2018-11-11 12:00] VITALS: BP_SYST 138
--- NOTE | 2018-11-11 13:00 | NUR ---
SEEN AND EXAMINED BY LIBAN MORENO WITH ORDER.
--- NOTE | 2018-11-11 15:35 | NUR ---
ROUND Patient resting in the bed. No acute distress. Continue on O2 2L/min via NC. PICC line intact, IVF infusing well. Family at bedside. Safety measure maintained. Call light within reached. Continue to monitor.
--- NOTE | 2018-11-11 15:38 | NUR ---
Nutritional Follow Up Admitting Diagnosis Respiratory failure Reviewed Pertinent Medical/Surgical Hx Medical Record Patient Primary RN Medical History Comment: PMH: DM, HTN, staph infection of the knee, s/p respiratory failure at [facility] per MD notes Pt also found w/ CHF and pneumonia per MD notes Subjective Information Pt seen resting in bed, +alert and awake, RN at bedside providing medication. Pt just arrived back from procedure, breakfast tray at bedside, untouched. Pt reported of a little hesitation w/ swallowing pudding from last nights meal. No GI distress noted. Per EMR, PO intake 30% poor x 3 meals 11/10/18. Pt is not yet meeting adequate nutrition w/ current PO intake and ONS is warranted. Pt agreed to drink ONS per RD rec. Per ST notes 11/10/18: VFSS COMPLETED. PT PRESENTS W/ PT PRESENTS W/ MOD-SEV OROPHARYNGEAL DYSPHAGIA CHARACTERIZED BY DELAYED INITIATION AND TRANSFER OF BOLUS, PROLONGED MASTICATION, DELAYED SWALLOW, MOD-SEV VALLECULAR RETENTION, ML RETENTION AT THE PYRIFORM SINUS, INFREQUENT PENETRATION WITH EJECTION, AND ASPIRATION X 1 ON HONEY THICK LIQUIDS. NO FURTHER ASPIRATION WITH USE OF SMALL SIPS AND CHIN TUCK. OTHER COMPENSATORY STRATEGIES (EG. EFFORTFUL SWALLOW, FLORES MANEUVER) DO NOT IMPROVE SWALLOW FUNCTION. REC: [facility] SOFT FINELY CHOPPED DIET. THIN LIQUIDS. SWALLOW TX. Current Diet Order/Nutrition Support [facility] Soft, Finely Chopped, Thin Liquid Diet x0 Days Patient/Significant Other Able To Verbalize Education Provided Not Indicated Pertinent Medications SSI, protonix IV, KCl/NaCl IV, Amiodarone Pertinent Labs BG 103 H (trending down), POC BG 106 H, ALB 2.3 L ALP 133 H (11/11), H/H 10.4 L/32 L, K 3.1 L Height (Feet) 6 feet Height (Inches) 0.00 inches Weight (Pounds) 248 pounds (11/07), 241 (11/09) Weight (Calculated Kilograms) 109.429 kilograms Patient Weight 109.429 kilograms Body Mass Index 32.7 kg/m2 Usual Weight 265 lbs %UBW 91 %IBW 135 [place]/Adjusted Body Weight IBW: 178 lb, 81 kg. Adj IBW (obesity): 194 lb, 88 kg Recent Weight Change Bedscale wt: 248 lb; possible 17 lb wt loss within past month; 6% wt change Last BM Nov 07, 2018 Food Allergies No Usual Diet At Home Soft foods recently per family Skin Integrity Comment: Neeraj scale: 16; per nursing notes, anterior L medial knee w/ erythema, R anterior knee w/ dry scab; L upper thigh w/ abrasion; sacrum w/ erythema Estimated Energy Expenditure (kcals/day) *Re-calculated 8671-0116 kcal (25-30 kcal/kg IBW for maintenance) Estimated Protein Required (g/day) *Re-calculated 105-162 g/day (1.3-2 gm/kg IBW for respiratory failure) Estimated Fluid Required (l/day) Per MD (CHF) Problem/Etiology/Signs/Symptoms Inadequate nutritional intakes related to moderate-severe oropharyngeal dysphagia as evidenced by prolonged mastication, delayed swallow and aspiration per ST. Altered nutrition-related labs related to endocrine dysfunction as evidenced by abnormal BG and POC BG lab values. *Ongoing Expected Outcomes/Goals - Monitor appetite and PO intake w/ goal of pt meeting at least 50% of estimated nutritional needs, labs trending WNL, normal GI function, and skin integrity/wt maintenance Dietitian Recommendations * Recommend [facility] Soft, finely chopped CCHO diet w/ Glucerna TID (ONS will provide additional 660 kcal and 30 g PRO.) Follow Up High Risk: F/U in 2-3days
--- NOTE | 2018-11-11 15:39 | NUR ---
Dietitian Recommendations * Recommend [facility] Soft, finely chopped CCHO diet w/ Glucerna TID (ONS will provide additional 660 kcal and 30 g PRO.) Please see Nutrition F/U note. LEXI, RD
--- NOTE | 2018-11-11 15:50 | NUR ---
S.T. S: PT SEEN FOR TX. SISTER IN LAW AT BEDSIDE. O: IMPROVE SWALLOW SAFETY AND FUNCTION. A: EXPLAINED IN DETAIL RE: VFSS FINDINGS AND RECOMMENDATIONS. EXPLAINED RATIONALE FOR ALL SWALLOW STRATEGIES. THEY VERBALIZED UNDERSTANDING. PT PRESENTED W/ PUREE AND THIN LIQUIDS. MOD CUEING GIVEN FOR BOLUS AMOUNT REGULATION, CHIN TUCK, AND MULTIPLE SWALLOWS. NO S/S OF ASPIRATION. P: CONTINUE TX. IF/WHEN PT TRANSFERS TO REHAB/POST-ACUTE, PT WOULD BENEFIT FROM CONTINUED S.T. INTERVENTION FOR DYSPHAGIA. [id number]
[2018-11-11 16:00] VITALS: BP_SYST 129
[2018-11-11] MEDS: POTASSIUM CHLORIDE 10 MEQ in 0.45% NACL 1,000 ML IV SCH (17:29)
--- NOTE | 2018-11-11 17:50 | NUR ---
EEG DONE AT BEDSIDE.
--- NOTE | 2018-11-11 18:55 | NUR ---
CLOSING NOTE Patient resting in the bed comfortable. No acute distress. On O2 2L/min via NC. AAO x 4. Denied of pain. Skin warm and dry to touch. PICC line intact to EFE, no redness, no swelling, covered with clean and dry transparent dressing. All needs met. Family at bedside. Safety measure maintained. Bed locked in low position, side rails up, bed alarm on. Call light within reached. Will endorse to night nurse.
--- NOTE | 2018-11-11 19:10 | NUR ---
OPENING NOTE Received report from Diana. Patient resting in bed awake, alert, oriented x4. Family at the bedside. Breathing unlabored and even on 2L oxygen via NC. Fall, safety, and aspiration precautions in place. Bed in lowest position, brake on, alarm on, call light within reach. Pillow support it place. IVF infusing as ordered. SCDs on. All needs met at this time. Will continue to monitor.
[2018-11-11 20:00] VITALS: BP_SYST 141
--- NOTE | 2018-11-11 21:09 | NUR ---
Patient resting in bed awake, alert, oriented x4. Family at the bedside. Breathing unlabored and even on 2L oxygen via NC. Fall, safety, and aspiration precautions in place. Bed in lowest position, brake on, alarm on, call light within reach. Pillow support it place. IVF infusing as ordered. SCDs on. All needs met at this time. Will continue to monitor.
--- NOTE | 2018-11-11 23:49 | NUR ---
Patient resting in bed with eyes closed. Breathing unlabored and even on bipap. No signs of distress. Fall, safety, and aspiration precautions in place. Bed in lowest position, brake on, alarm on, call light within reach. Pillow support it place. IVF infusing as ordered. SCDs on. Will continue to monitor.
[2018-11-12] MEDS: ALBUTEROL SULFATE 0.083% 2.5 MG/3 ML VIAL.NEB INH SCH ×4 (00:46→20:03)
[2018-11-12] MEDS: IPRATROPIUM BROM 0.5 MG/2.5 ML VIAL.NEB (ATROVENT) INH SCH ×4 (00:47→20:03)
[2018-11-12 00:58] VITALS: BP_SYST 144
[2018-11-12] MEDS: INSULIN REGULAR, HUMAN 100 UNITS/ML, 10 ML VIAL (novoLIN R) SUBCUT PRN ×2 (01:04→06:04)
--- NOTE | 2018-11-12 01:04 | NUR ---
Blood sugar: 100. No insulin coverage needed at this time.
--- NOTE | 2018-11-12 06:05 | NUR ---
Blood sugar: 92. NO insulin coverage needed at this time.
[2018-11-12 06:56] LABS: CALCIUM 8.6 mg/dL (8.4-11.0); CREATININE 0.56 mg/dL (0.55-1.30); POTASSIUM 3.1 mmol/L (3.5-5.1)
[2018-11-12 07:11] LABS: ALBUMIN 2.2 g/dL (3.4-4.8); TOTAL BILIRUBIN 0.4 mg/dL (0.0-1.0)
--- NOTE | 2018-11-12 07:25 | NUR ---
CLOSING NOTE Gave report to Diana. Patient resting in bed with eyes closed. Breathing unlabored and even on bipap. No signs of distress. Fall, safety, and aspiration precautions in place. Bed in lowest position, brake on, alarm on, call light within reach. Pillow support it place. IVF infusing as ordered. SCDs on. Endorsed cares to day shift nurse.
--- NOTE | 2018-11-12 07:40 | NUR ---
OPENING NOTE Patient resting in the bed comfortable. No acute distress. On O2 2L/min via NC. AAO x 4. Denied of pain. Skin warm and dry to touch. PICC line intact to EFE, no redness, no swelling, covered with clean and dry transparent dressing. On KCl 10mEq in 1/2NS at 50ml/hr, infusing well. SCD in placed. Discussed the safety issue, use call light when needs help, and plan of care, verbally understanding. Safety measure maintained. Bed locked in low position, side rails up, bed alarm on. Call light within reached. Will continue to monitor.
[2018-11-12] MEDS ORDERED: POTASSIUM CHLORIDE 20 MEQ TAB.PRT.SR PO ONE (08:00)
[2018-11-12 08:05] LABS: WHITE BLOOD COUNT (AUTO) 3.1 K/uL (4.8-10.8)
[2018-11-12 08:08] LABS: HEMATOCRIT 30.1 % (36-54); HEMOGLOBIN 9.8 g/dL (14.0-18.0); MEAN CORPUSCULAR HEMOGLOBIN 30 pg (27-31); MEAN CORPUSCULAR HGB CONC 33 % (32-36); MEAN CORPUSCULAR VOLUME 92 fL (79.0-98.0); RED BLOOD CELL COUNT(AUTO) 3.29 MIL/uL (4.2-6.2); RED CELL DISTRIBUTION WIDTH 15.4 % (9.0-15.0)
[2018-11-12 08:09] LABS: BASOPHILS % (AUTO) 0.4 % (0.0-2.0); EOSINOPHILS % (AUTO) 2.9 % (0.0-4.0); LYMPHOCYTES % (AUTO) 24.2 % (20.5-51.5); MONOCYTES % (AUTO) 9.9 % (1.7-9.3); NEUTROPHILS # (AUTO) 1.9 K/uL (1.8-7.7); NEUTROPHILS % (AUTO) 62.6 % (40.0-70.0); PLATELET COUNT (AUTO) 161 K/uL (130-430)
[2018-11-12 08:10] LABS: EOSINOPHILS # (AUTO) 0.1 K/uL (0.0-0.4); LYMPHOCYTES # (AUTO) 0.7 K/uL (1.0-5.5); MONOCYTES # (AUTO) 0.3 K/uL (0.0-1.0)
[2018-11-12 08:15] VITALS: BP_SYST 129
--- NOTE | 2018-11-12 08:15 | NUR ---
SEEN BY GEMA SLATER Dr. examined patient and explained the reason to transfer to [facility] when bed available, verbally understanding.
--- NOTE | 2018-11-12 09:20 | NUR ---
SEEN AND EXAMINED BY VINCE RIVERO.
--- NOTE | 2018-11-12 10:03 | NUR ---
[facility] Transfer: Working with [facility] ([facility]) Admitting Dept., spoke with Susana and faxed all clinicals to her at , accepting MD is Dr. Toni Yoon. Susana will call me back, awaiting on a Tele bed assignment. [facility] ambulance on will call . Message left to patient's sister in law/DPOA Keri regarding the transfer to [facility] orders. Citlaly Rene, HCP Marketing Operations Consultant [phone]
--- NOTE | 2018-11-12 10:06 | NUR ---
OFF UNIT FOR MRI OF BRAIN/HEAD VIA GURNEY WITH O2 2L/MIN VIA NC IN STABLE CONDITION.
[2018-11-12] MEDS: PANTOPRAZOLE SODIUM 40 MG/VIAL (PROTONIX) IVP SCH (10:57)
[2018-11-12] MEDS: LEVOFLOXACIN 500 MG/D5W 100 ML IV SCH (10:58)
[2018-11-12] MEDS: ASPIRIN 81 MG TAB.CHEW PO SCH (10:58)
[2018-11-12] MEDS: ENOXAPARIN SODIUM 40 MG/0.4 ML SYRINGE SUBCUT SCH (10:59)
--- NOTE | 2018-11-12 11:00 | NUR ---
BACK TO UNIT FROM MRI VIA [place] WITH O2 IN STABLE CONDITION.
[2018-11-12] MEDS: AMIODARONE HCL 200 MG TABLET PO SCH (11:02)
--- NOTE | 2018-11-12 11:53 | NUR ---
SON SIGNED THE TRANSFER ACKNOWLEDGEMENT Patient's son-Herson visited notify the transfer to [facility] accepted and waited the bed. Herson read the from of transfer acknowledgement and signed it.
[2018-11-12 13:28] VITALS: BP_SYST 130
--- NOTE | 2018-11-12 14:20 | NUR ---
ROUND Patient resting in the bed and watching TV. No acute distress. Continue on O2 2L/min via NC. PICC line intact. Safety measure maintained. Call light within reached. Continue to monitor.
--- NOTE | 2018-11-12 15:51 | NUR ---
Consult called: for Dr. Taj Rey, regarding ocular dysfunction, ordered by Dr. Storey, spoke with
--- NOTE | 2018-11-12 16:18 | NUR ---
[facility] Transfer Cancelled Per Dr. Storey, Dr. Alfred Yoon at [facility] told him to cancel transfer to [facility] as they cannot find an ENT who will see the patient at [facility]. ENT's want patient to go to their office instead as they have their specialized equipments in the clinic not available at the hospital. Spoke with patient's sister in law/DPLOULOU Keri and made her aware of [facility] transfer being cancelled. Spoke with [facility] admitting and cancelled the [facility] direct transfer inquiry. [facility] ambulance cancelled. Will continue to look for consulting ENT who will come to [facility] to see the patient. ENT Dr. Taj Rey deferred me to contact Dr. Brannon. Message left to office. They will call me back if Dr. Brannon can see the patient. Citlaly Rene, HCP Cut Off Machine Operator [phone]
--- NOTE | 2018-11-12 16:24 | NUR ---
ENT Dr. Salud Valiente at Dr. Brannon's office confirmed that Dr. Brannon will see the patient tomorrow before 9:30am at [facility]. Dr. Storey made aware. Patient made aware. Will call sister in law/DPOA Keri and let her know as well. Citlaly Rene, HCP [employer] [phone]
--- NOTE | 2018-11-12 16:33 | NUR ---
consult follow up: Called Dr. Rey's office and spoke with Fan. 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 consult dashawn be given to Dr. Brannon.
--- NOTE | 2018-11-12 18:15 | NUR ---
INFORMED TO OBDULIO FRO DC TRANSFER Patient's [id number] visited informed to [facility] transfer and ENT doctor will come tomorrow to see the patient, verbally understanding.
[2018-11-12 18:17] VITALS: BP_SYST 142
--- NOTE | 2018-11-12 18:45 | NUR ---
CLOSING NOTE Patient resting in the bed comfortable. No acute distress. On O2 2L/min via NC. Denied of pain. Skin warm and dry to touch. PICC line intact to EFE, no redness, no swelling, patent, covered with clean and dry transparent dressing. SCD in placed. All needs met. Safety measure maintained. Bed locked in low position, side rails up, bed alarm on. Call light within reached. Will endorse to night nurse.
--- NOTE | 2018-11-12 19:35 | NUR ---
ROUNDS PATIENT RESTING COMFORTABLY IN BED, NOT IN DISTRESS, VITALS STABLE. DENIES ANY PAIN AND DISCOMFORT AT THIS TIME. ASSESSMENT DONE AND DOCUMENTED. SEE FLOWSHEET. NEEDS ATTENDED TO. SAFETY AND FALL PRECAUTION MEASURES IN PLACED. BED IN LOW AND LOCKED POSITION. CALL LIGHT PLACED WITHIN REACH.
--- NOTE | 2018-11-12 21:38 | NUR ---
PATIENT RESTING: Patient resting quietly. No acute distress noted. Vital signs within normal range.
--- NOTE | 2018-11-13 00:15 | NUR ---
ACCU CHECK ACCU CHECK DONE, BLOOD SUGAR 113, NO INSULIN COVERAGE PER SLIDING SCALE. WILL CONTINUE TO MONITOR.
[2018-11-13 00:36] VITALS: BP_SYST 109
[2018-11-13 01:11] VITALS: BP_SYST 136
[2018-11-13] MEDS: ALBUTEROL SULFATE 0.083% 2.5 MG/3 ML VIAL.NEB INH SCH ×3 (01:32→13:35)
[2018-11-13] MEDS: IPRATROPIUM BROM 0.5 MG/2.5 ML VIAL.NEB (ATROVENT) INH SCH ×3 (01:33→13:36)
--- NOTE | 2018-11-13 02:10 | NUR ---
ROUNDS PATIENT ASLEEP, NO SOB NOR PAIN AND DISCOMFORT NOTED, RESPIRATIONS EVEN AND UNLABORED. WILL CONTINUE TO MONITOR.
--- NOTE | 2018-11-13 04:15 | NUR ---
PATIENT RESTING: Patient resting quietly. No acute distress noted. Vital signs within normal range.
[2018-11-13 06:29] LABS: CALCIUM 8.5 mg/dL (8.4-11.0); CREATININE 0.64 mg/dL (0.55-1.30); POTASSIUM 3.8 mmol/L (3.5-5.1)
[2018-11-13 06:38] LABS: ALBUMIN 2.3 g/dL (3.4-4.8); TOTAL BILIRUBIN 0.3 mg/dL (0.0-1.0)
--- NOTE | 2018-11-13 06:39 | NUR ---
CLOSING NOTES PATIENT AWAKE, VITALS STABLE, NO PAIN AT THIS TIME. ALL NEEDS ATTENDED TO. SAFETY AND FALL PRECAUTION MEASURES MAINTAINED. CALL LIGHT PLACED WITHIN REACH.
--- NOTE | 2018-11-13 07:30 | NUR ---
OPENING NOTE: RECEIVED REPORT FROM NIGHT NURSE. PATIENT IS RESTING COMFORTABLY IN BED. NO S/S OF DISTRESS OR SOB. PATIENT IS ALERT AND ORIENTED, ABLE TO EXPRESS NEEDS, AND ASK FOR ASSISTANCE. PATIENT ON 2 L NASAL CANNULA. PATIENT WITH PICC LINE ON RIGHT UPPER ARM. SALINE LOCKED. CALL LIGHT IN REACH, BED IN LOWEST POSITION, AND WILL CONTINUE TO MONITOR.
[2018-11-13 07:31] LABS: HEMATOCRIT 32.9 % (36-54); HEMOGLOBIN 10.5 g/dL (14.0-18.0); LYMPHOCYTES % (AUTO) 20.7 % (20.5-51.5); MEAN CORPUSCULAR HEMOGLOBIN 29 pg (27-31); MEAN CORPUSCULAR HGB CONC 32 % (32-36); MEAN CORPUSCULAR VOLUME 92 fL (79.0-98.0); MONOCYTES % (AUTO) 9.5 % (1.7-9.3); NEUTROPHILS % (AUTO) 67.4 % (40.0-70.0); PLATELET COUNT (AUTO) 191 K/uL (130-430); RED BLOOD CELL COUNT(AUTO) 3.59 MIL/uL (4.2-6.2); RED CELL DISTRIBUTION WIDTH 15.6 % (9.0-15.0); WHITE BLOOD COUNT (AUTO) 3.5 K/uL (4.8-10.8)
[2018-11-13 07:32] LABS: BASOPHILS % (AUTO) 0.2 % (0.0-2.0); EOSINOPHILS # (AUTO) 0.1 K/uL (0.0-0.4); EOSINOPHILS % (AUTO) 2.2 % (0.0-4.0); LYMPHOCYTES # (AUTO) 0.7 K/uL (1.0-5.5); MONOCYTES # (AUTO) 0.3 K/uL (0.0-1.0); NEUTROPHILS # (AUTO) 2.4 K/uL (1.8-7.7)
[2018-11-13 08:00] VITALS: BP_SYST 133
[2018-11-13 08:11] LABS: AFP, TUMOR MARKER 1.6 ng/mL (0.0-8.3)
[2018-11-13] MEDS: LEVOFLOXACIN 500 MG/D5W 100 ML IV SCH (08:34)
[2018-11-13] MEDS: AMIODARONE HCL 200 MG TABLET PO SCH (08:35)
[2018-11-13] MEDS: PANTOPRAZOLE SODIUM 40 MG/VIAL (PROTONIX) IVP SCH (08:35)
[2018-11-13] MEDS: ASPIRIN 81 MG TAB.CHEW PO SCH (08:35)
[2018-11-13] MEDS: ENOXAPARIN SODIUM 40 MG/0.4 ML SYRINGE SUBCUT SCH (08:36)
--- NOTE | 2018-11-13 09:53 | NUR ---
Called ENT Office I called Dr. Brannon's office phone: [phone] to see what time he is coming in to see the patient and spoke with clinic secretary book keeper Steffanie. According to Steffanie, Dr. Brannon wanted to speak with Dr. Mcginnis first after reviewing patient's clinicals. He asked that Dr. Storey call him at his office. Dr. Storey made aware. Citlaly Rene, HCP Programmer Business [phone]
[2018-11-13 11:16] LABS: FERRITIN 78 ng/mL (30-400)
[2018-11-13 11:25] VITALS: BP_SYST 112
--- NOTE | 2018-11-13 12:00 | NUR ---
RN ROUNDS PATIENT IS RESTING COMFORTABLY IN BED. NO S/S OF DISTRESS OR SOB. PATIENT IS ALERT AND ORIENTED, ABLE TO EXPRESS NEEDS, AND ASK FOR ASSISTANCE. NO NEEDS EXPRESSED AT THIS TIME. CALL LIGHT IN REACH, BED IN LOWEST POSITION, AND WILL CONTINUE TO MONITOR.
--- NOTE | 2018-11-13 14:12 | NUR ---
SNF AVAILABILITY: [facility] Room [address] [place] [address] (Nurse to call for report) [facility] ambulance on will call (Nurse to call for pharmacy picking technician time) If patient or family refuses discharge to SNF, patient will need to appeal the discharge. Citlaly Rene [facility] Flexible Babysitter [phone] Addendum: 11/13/18 at 1451 by Citlaly Rene LVN Spoke with patient's sister in law/DPLOULOU Keri at 2:48pm and informed her of the discharge order to SNF for today and she is agreeable with the plan. She also said that she already spoke with Dr. Storey and that he explained to her also the discharge plan.
--- NOTE | 2018-11-13 15:46 | NUR ---
[facility] WAS CALLED TO CONFIRM DEVELOPMENT MGR TIME FOR 1630 TO GO TO [facility], RM 117B. SPOKE TO
[2018-11-13 15:52] VITALS: BP_SYST 112
[2018-11-13 16:28] VITALS: BP_SYST 143
--- NOTE | 2018-11-13 16:40 | NUR ---
PT TRANSFERRED Report given to Dilia at [facility]. Transfer packet with Transfer Orders and Medication Reconciliation form given to EMT with report. Exitcare provided. [facility] ID band removed, replaced with ID band with pt's name and . Patient left with PICC line, secured. All belongings sent with patient. Patient left floor via gurney escorted by EMT in no distress.
[2018-11-13 18:12] LABS: ANTI NUCLEAR AB WITH REFLEX Negative (Negative)
[2018-11-14 05:06] LABS: ALPHA-1-ANTITRYPSIN, S 168 mg/dL (90-200)
[2018-11-15 16:17] LABS: ANTI-SMOOTH MUSCLE AB 13 Units (0-19)
== END 2018-11-13 16:40 | DRG 208 ==
LOC: SED 12:06 → SIC 13:21 → STU 11-09 16:37
PROVIDERS: ADMIT Internal Medicine Hospice and Palliative Medicine; ATTEND Internal Medicine Hospice and Palliative Medicine
PROC: 0BH17EZ Insertion of Endotracheal Airway into Trachea, Via Natural or Artificial Opening (ICD-10-PCS; principal; 2018-11-06)
PROC: 5A1945Z Respiratory Ventilation, 24-96 Consecutive Hours (ICD-10-PCS; 2018-11-06)
PROC: 5A09357 Assistance with Respiratory Ventilation, Less than 24 Consecutive Hours, Continuous Positive Airway Pressure (ICD-10-PCS; 2018-11-09)
DX: J96.21 Acute and chronic respiratory failure with hypoxia (principal); I46.9 Cardiac arrest, cause unspecified; J18.9 Pneumonia, unspecified organism; R57.9 Shock, unspecified; J96.22 Acute and chronic respiratory failure with hypercapnia; E11.9 Type 2 diabetes mellitus without complications; E78.5 Hyperlipidemia, unspecified; G62.9 Polyneuropathy, unspecified; G72.3 Periodic paralysis; I11.0 Hypertensive heart disease with heart failure; I50.9 Heart failure, unspecified; J38.00 Paralysis of vocal cords and larynx, unspecified; J38.3 Other diseases of vocal cords; K21.9 Gastro-esophageal reflux disease without esophagitis; K22.70 Barrett's esophagus without dysplasia; Z83.3 Family history of diabetes mellitus; Z96.653 Presence of artificial knee joint, bilateral; M19.90 Unspecified osteoarthritis, unspecified site; Z88.0 Allergy status to penicillin; Z79.899 Other long term (current) drug therapy; I48.0 Paroxysmal atrial fibrillation; D64.9 Anemia, unspecified
CPT/HCPCS: 36415; 36600; 70450-TC; 70491-TC; 70551; 71045; 71275; 74230; 76700-TC; 80053; 80074; 80307; 81000-TC; 82103; 82105; 82140-TC; 82533; 82728; 82803-TC; 82962; 83036; 83516; 83519; 83540-TC; 83550-TC; 83605; 83880; 84484; 85025; 85610-TC; 86038; 86376; 87040-TC; 87081; 87086; 92526-GN; 92610-GN; 92611-GN; 93005; 93306; 93970; 93971; 94002; 94003; 94640; 94660; 94760; 95816; 96365; 97110-GP; 97163; 97530-GP; 99291; C9113; G0378; J0171; J1650; J1720; J1815; J1940; J1956; J3480; J7030; J7050; J7060; J7613; Q9967